=== PATIENT | female | born 1985 | race Caucasian/White ===

== ENCOUNTER 2023-06-18 16:25 | Emergency (ER) | payer OTHER ==
[~2023-06-18] VITALS: Ht 157.5 cm; Wt 61.2 kg
[2023-06-18 16:35] VITALS: BP 155/90; PULSE 99; RESP 17; TEMP 97.4; O2SAT 99
[2023-06-18 17:07] VITALS: O2SAT 99
[2023-06-18 17:11] LABS: BASOPHILS # (AUTO) 0.1 K/uL (0.00-0.22); BASOPHILS % (AUTO) 0.7 % (0.0-2.0); EOSINOPHILS # (AUTO) 0.1 K/uL (0-0.4); EOSINOPHILS % (AUTO) 0.6 % (0.0-4.0); HEMATOCRIT 40.8 % (36-48); LYMPHOCYTES # (AUTO) 1.9 K/uL (2.5-16.5); LYMPHOCYTES % (AUTO) 19.7 % (20.5-51.1); MEAN CORPUSCULAR HEMOGLOBIN 29 pg (27-31); MEAN CORPUSCULAR HGB CONC 33 g/dL (33-37); MEAN CORPUSCULAR VOLUME 86.3 fL (80-94); MONOCYTES # (AUTO) 0.4 K/uL (0.8-1.0); MONOCYTES % (AUTO) 4.7 % (1.7-9.3); NEUTROPHILS % (AUTO) 74.3 % (42.2-75.2); PLATELET COUNT (AUTO) 311 K/uL (140-450); RED BLOOD CELL COUNT(AUTO) 4.73 MIL/uL (4.20-5.40); RED CELL DISTRIBUTION WIDTH 14.3 % (11.6-13.7); WHITE BLOOD COUNT (AUTO) 9.4 K/uL (4.8-10.8)
[2023-06-18 17:14] LABS: HEMOGLOBIN 13.5 g/dL (12.0-16.0)
[2023-06-18] MEDS ORDERED: FAMOTIDINE 20 MG TAB PO ONE (17:15)
[2023-06-18] MEDS ORDERED: ALUMINUM HYD/MAG/SIMETHICONE 30 ML UDC PO ONE (17:15)
[2023-06-18] MEDS ORDERED: FAMOTIDINE 20 MG/2 ML VIAL IVP ONE (17:25)
[2023-06-18] MEDS ORDERED: NACL 0.9% 1,000 ML IV ONE (17:25)
[2023-06-18 17:27] LABS: ANION GAP 14.1 (8-16); CALCIUM 8.8 mg/dL (8.5-10.1); CARBON DIOXIDE 26.1 mmol/L (21-32); CREATININE 0.6 mg/dL (0.6-1.3); POTASSIUM 3.2 mmol/L (3.5-5.1)
[2023-06-18 19:05] VITALS: TEMP 97.4; O2SAT 99
[2023-06-18 19:38] VITALS: O2SAT 99
[2023-06-18 20:18] VITALS: BP 142/81; PULSE 105; RESP 14
== END 2023-06-18 20:19 | disposition home or self-care (01) ==
LOC: MED 16:25
DX: R07.9 Chest pain, unspecified (principal); Z79.899 Other long term (current) drug therapy
CPT/HCPCS: 36415; 71045; 80048; 81025; 84484; 85025; 93005; 96361; 96374; 99285; J3490; J7030